=== PATIENT | male | born 1945 | race Caucasian/White ===

== ENCOUNTER 2018-05-03 14:30 | Emergency (ER) | payer MEDICARE, OTHER ==
[2018-05-03 14:34] VITALS: BP 122/75; PULSE 85; RESP 20; TEMP 99; O2SAT 100
--- NOTE | 2018-05-03 15:59 | C.PDOC ---
History Of Present Illness 72 year old male presents to ED with complaint of dryness to the throat and difficulty swallowing. Patient describes his throat as feeling "gravel-ly". Patient was in the [place] when this began 1 month ago. When he went to see the doctor, he told him that he was dehydrated and to drink more Gatorade. Patient is an ex-smoker and states that he only drinks socially. Patient drinks everyday and states that he is not going through withdrawal. He denies fever, chills, nausea, vomiting, and neck pain. Time Seen by Provider: 05/03/18 14:38 Chief Complaint (Nursing): ENT Problem History Per: Patient History/Exam Limitations: no limitations Onset/Duration Of Symptoms: Other (1 month) Current Symptoms Are (Timing): Still Present Recent travel outside of the [place]: Yes ([place]) Past Medical History Reviewed: Historical Data, Nursing Documentation, Vital Signs Vital Signs: Last Vital Signs Temp 99 F 05/03/18 14:33 Pulse 85 05/03/18 14:33 Resp 20 05/03/18 14:33 BP 122/75 05/03/18 14:33 Pulse Ox 100 05/03/18 14:33 - Medical History PMH: Gastritis Surgical History: No Surg Hx Family History: States: Unknown Family Hx - Social History Hx Tobacco Use: Yes Hx Alcohol Use: Yes Hx Substance Use: No - Immunization History Hx Tetanus Toxoid Vaccination: No Hx Influenza Vaccination: No Hx Pneumococcal Vaccination: No Review Of Systems Constitutional: Negative for: Fever, Chills, Weakness ENT: Positive for: Other (throat dryness and difficulty swallowing) Gastrointestinal: Negative for: Nausea, Vomiting Musculoskeletal: Negative for: Neck Pain Neurological: Negative for: Weakness, Numbness, Dizziness Physical Exam - Physical Exam Appears: Other (frail, elderly, tremulous) Skin: Normal Color, Warm, Dry Head: Atraumatic, Normacephalic Ear(s): Bilateral: Normal Throat: Normal, No Erythema, No Exudate Neck: Normal ROM, Supple Chest: Symmetrical, No Deformity Cardiovascular: Rhythm Regular Respiratory: No Accessory Muscle Use Gastrointestinal/Abdominal: Soft, No Tenderness Neurological/Psych: Oriented x3, Normal Speech, Normal Cognition ED Course And Treatment O2 Sat by Pulse Oximetry: 100 (in RA) Medical Decision Making Medical Decision Making: Impression: 72 year old male complaining of dry throat Plan: Patient given Motrin PO and Tylenol PO. Differential Dx: Including but not limited to Pharyngitis or bacterial infection versus other malignancy Patient advised to follow up with ENT. Upon reassessment, patient is resting comfortably, in no distress, and is stable for discharge. Discussed results and plan with patient who expresses understanding. All questions answered and there is agreement with the plan to discharge home with instructions. Return if symptoms persist or worsen. Disposition Counseled Patient/Family Regarding: Need For Followup, Rx Given - Disposition Referrals: Natan Tavares MD [Staff Provider] - Nima Mayorga MD [Staff Provider] - Disposition: HOME/ ROUTINE Disposition Time: 15:57 Condition: GUARDED Additional Instructions: Porfavor siga con florez doctor y el doctor de [facility]. Prescriptions: Ibuprofen [Motrin] 600 mg PO TID #15 tab Instructions: Dysphagia Forms: Gen Discharge Inst Czech, My [facility] (Czech) - POA Present On Arrival: None - Clinical Impression Clinical Impression: Dysphagia - Scribe Statement The provider has reviewed the documentation as recorded by the Scribe (Rupal Monreal) All medical record entries made by the Scribe were at my direction and personally dictated by me. I have reviewed the chart and agree that the record accurately reflects my personal performance of the history, physical exam, medical decision making, and the department course for this patient. I have also personally directed, reviewed, and agree with the discharge instructions and disposition.
== END 2018-05-03 16:10 | disposition home or self-care (01) ==
LOC: C.ER 14:30
DX: R13.10 Dysphagia, unspecified (principal); Z87.891 Personal history of nicotine dependence